=== PATIENT | male | born 1950 | race Caucasian/White ===

== ENCOUNTER → 2017-12-25 10:14 | Outpatient (CLI) | payer MEDICARE | END | disposition home or self-care (01) | LOC: D.CT 10:14 | DX: I25.10 Atherosclerotic heart disease of native coronary artery without angina pectoris (principal) ==

== ENCOUNTER → 2019-12-06 09:27 | Outpatient (CLI) | payer MEDICARE | END | disposition home or self-care (01) | LOC: D.HCCARDIO 11-01 10:00 | PROVIDERS: ATTEND Internal Medicine Cardiovascular Disease | DX: I25.10 Atherosclerotic heart disease of native coronary artery without angina pectoris (principal) ==

== ENCOUNTER → 2019-12-15 11:04 | Outpatient (CLI) | payer MEDICARE | END | disposition home or self-care (01) | LOC: D.US 12-12 13:30 | PROVIDERS: ATTEND Internal Medicine Cardiovascular Disease | DX: I65.23 Occlusion and stenosis of bilateral carotid arteries (principal) ==

== ENCOUNTER 2020-01-05 06:18 | Outpatient (CLI) | payer MEDICARE ==
[~2020-01-05] VITALS: Ht 180.3 cm; Wt 151.0 kg
--- NOTE | ~2020-01-05 | HEMODYNAMI ---
PATIENT:POLO FONTENOT MEDICAL RECORD: [id number] : 52 LOCATION:[facility] ADMISSION DATE: 01/05/20 Generatedon:01/05/20209:18 Patient name: POLO FONTENOT Patient #: [id number] SSN: [id number] : 1950 Date of study: 01/05/2020 Page: Of Hemodynamic Procedure Report Patient Data Patient Demographics Procedure consent was obtained First Name: POLO Gender: Male Last Name: PO : 1950 [facility] Initial: BUZZ Age: 69 year(s) Patient #: [id number] Race: SSN: [id number] Additional ID: [id number] Contact details [address]: [address] [place] [address] State: [place] City: [place] Zip code: [address] Past Medical History Performed procedures and imaging results Date Procedure Procedure Results Comments Stress testing Positive->Intermediate with SPECT MPI risk History of disease Date Diagnosis Comments CAD Allergies Allergen Reaction Date Comments Reported Penicillins 01/05/2020 Admission Admission Data Admission Date: 01/05/2020 Admission Time: 6:18 Arrival Date: 01/05/2020 Arrival Time: 0:00 Insurance Payor: Medicare Weight (lbs.): 333 Weight (kg.): 151.05 Lab Results Lab Result Date: 01/05/2020 Lab Result Time: 0:00 Biochemistry Name Units Result Min Max BUN mg/dl 21 --(----)-* 7 18 Creatinine mg/dl 1.4 --(----)*- 0.6 1.3 eGFR ml/min 53 *-(----)-- 90 120 NONAFRICAN CBC Name Units Result Min Max Hematocrit % 43.5 --(*---)-- 42 54 Hemoglobin g/dl 13.9 --(*---)-- 13.5 17.5 Procedure Procedure Types Cath Procedure Diagnostic Procedure LHC LHC w/Coronaries Sedation Charges Moderate Sedation up to 15 minutes Procedure Description Procedure Date Procedure Date: 01/05/2020 Procedure Start Time: 8:56 Procedure End Time: 9:16 Procedure Staff Name Function Singh Holloway MD Performing Physician Julia Aaron RT Monitor Reva Lindo RT Scrub Valentine Nix RN Nurse Indication CAD Procedure Data Cath Procedure Fluoroscopy Diagnostic fluoroscopy Total fluoroscopy Time: 2.6 time: 2.6 min min Diagnostic fluoroscopy Total fluoroscopy dose: dose: 1408 mGy 1408 mGy Contrast Material Contrast Material Type Amount (ml) Isovue 300 77 Entry Location Entry Primary Successful Side Size Upsize Upsize Entry Closure Martinez ccessful Closure Location (Fr) 1 (Fr) 2 (Fr) Remarks Device Remarks Radial Right 6 Fr Mechanical artery Short Compression Estimated blood loss: 5 ml Diagnostic catheters Device Type Used For End Catheter Placement DIAGNOSTIC Chalino 110cm Procedure 5Fr catheter ([id number]) Procedure Complications No complications Procedure Medications Medication Administration Route Dosage 0.9% NaCl I.V. 100 ml/hr Oxygen etCO2 Nasal cannula 2 l/min Lidocaine 2% added to field 20 Heparin Flush Bag added to field 2 bags (1000units/500ml NS) Radial Cocktail added to field 1 syringe (Verapamil 2mg/Nitro 400mcg/Heparin 1500units) Versed I.V. 2 mg Fentanyl I.V. 50 mcg Fentanyl I.V. 50 mcg Hemodynamics Rest HGB: 13.9 (g/dl) Heart Rate: 73 (bpm) Pressure Samples Time Site Value (mmHg) Purpose Heart Use Rate(bpm) 9:04 LV 161/1,18 Snapshot 79 9:05 AO 151/70(98) Pullback 85 9:05 LV 143/19,9 Pullback 85 Gradients Valve Time Site 1 Site 2 Mean SEP/DFP Peak To Heart Use (mmHg) (sec/min) Peak Rate (mmHg) (bpm) Aortic 9:05 LV AO 0 2 0 85 143/19,9 151/70(98) Calculations Valve P-P Mean Valve Index Valve Source Name Gradient Area Flow (cm2) Aortic 0 0 0 0 Snapshots Pre Cath Intra NCS Post Cath Vital Signs Time Heart Resp SPO2 etCO2 NIBP (mmHg) Rhythm Pain Sedation Rate (ipm) (%) (mmHg) Status Level (bpm) 8:42:42 77 16 96 37.8 Measuring NSR 0 (11) 10(A) , No pain 8:43:08 76 16 96 35.5 143/62(127) NSR 0 (11) 10(A) , No pain 8:47:28 81 13 97 37.8 142/69(117) NSR 0 (11) 10(A) , No pain 8:51:40 76 17 96 42.4 122/56(96) NSR 0 (11) 10(A) , No pain 8:56:00 77 14 96 40.8 138/49(114) NSR 0 (11) 10(A) , No pain 9:00:04 80 13 96 41 132/89(111) NSR 0 (11) 10(A) , No pain 9:04:30 78 17 97 29.5 90/41(75) NSR 0 (11) 10(A) , No pain 9:09:21 82 13 95 40.8 134/63(91) NSR 0 (11) 10(A) , No pain 9:13:37 81 16 96 40 128/67(104) NSR 0 (11) 10(A) , No pain Medications Time Medication Route Dose Verified Delivered Reason Notes Ef fectiveness by by 8:38:30 0.9% NaCl I.V. 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 2 mg Singh Valentine for Jewel Nix sedation RN 8:52:12 Fentanyl I.V. 50 mcg Singh Valentine for Jewel Nix sedation RN 8:58:41 Fentanyl I.V. 50 mcg Singh Valentine for Jewel Nix sedation journeyman mechanic Log Time Note 8:07:07 Informed consent obtained and on chart 8:08:55 Patient allergic to Penicillins 8:09:07 Insurance Payor : Medicare 8:09:14 Diagnostic Cath Status : Elective 8:09:57 Procedure Status Elective Heart Cath (OP). 8:09:59 Time tracking: Regular hours (M-F 7:00 - 5:00) 8:10:03 Plan of Care:Hemodynamics will remain stable., Cardiac rhythm will remain stable., Comfort level will be maintained., Respiratory function will remain adequate., Patient/ family verbilizes understanding of procedure., Procedure tolerated without complication., Recovers from procedure without complications.. 8:10:17 H&P Date Dictated: 01/05/2020 Greater than 30 days; new H&P dictated by physician. Or brief H&P completed.. 8:17:37 Is the patient allergic to Iodine/contrast media? No. 8:17:38 Was the patient premedicated? N/A 8:17:40 Is patient on blood thinner?Yes 8:17:43 ACC The patient was administered the following blood thiners within the last 24 hours: ACCPlavix 8:17:45 Patient diabetic? Yes. 8:17:47 If diabetic: On Metformin? Yes 8:17:49 If on Metformin: Last Dose? 01/05/2020 8:18:00 Patient NPO since Midnight. 8:24:27 Indication : CAD 8:24:59 Patient Weight : 333 lbs 8:25:20 Arrival Date: 01/05/2020 12:00:00 AM 8:28:14 Valentine Nix RN sent for patient. Start room use. 8:31:39 Patient received from Pre/Post Procedure Room to CCL 2 Alert and oriented. Tansferred to table in Supine position. 8:31:41 Warm blankets applied, and mandie hugger turned on for patient comfort. 8:31:41 Correct patient and procedure confirmed by team. 8:31:42 ECG and BP/O2 sat monitors applied to patient. 8:38:30 0.9% NaCl 100 ml/hr I.V. was administered by Valentine Nix RN; used for procedure; Verbal order read back and verified. 8:38:36 Oxygen 2 l/min etCO2 Nasal cannula was administered by Valentine Nix RN; used for procedure; Verbal order read back and verified. 8:38:41 Lidocaine 2% 20ml vial added to field was administered by Singh Holloway MD; for local anesthetic; Verbal order read back and verified. 8:38:45 Heparin Flush Bag (1000units/500ml NS) 2 bags added to field was administered by Singh Holloway MD; used for procedure; Verbal order read back and verified. 8:40:51 Vital chart was started 8:40:55 Baseline sample Acquired. 8:40:59 Rhythm: sinus rhythm 8:41:00 Full Disclosure recording started 8:41:01 Pre-procedure instructions explained to patient. 8:41:01 Pre-op teaching completed and patient verbalized understanding. 8:41:05 Previous problem with sedation/anesthesia? No ? 8:41:06 Snore? Yes 8:41:07 Radial Cocktail (Verapamil 2mg/Nitro 400mcg/Heparin 1500units) 1 syringe added to field was administered by Singh Holloway MD; used for procedure; Verbal order read back and verified. 8:41:07 Sleep apnea? Yes 8:41:08 Deviated septum? No 8:41:09 Opens mouth fully? Yes 8:41:10 Sticks out tongue? Yes 8:41:11 Airway obstruction? No ? 8:41:13 Dentures? No ? 8:41:15 Pre procedure: right dorsailis pedis pulse 1+ Palpable, but thready & weak; easily obliterated 8:41:17 Modified Rich's test Ulnar < 7 seconds 8:41:20 Patient pain scale 0/10 ?. 8:41:24 IV patent on arrival in left hand with 0.9% NaCl at [facility]. 8:41:29 Right Radial & Right Groin area was prepped with chlora-prep and draped in sterile fashion 8:41:30 Alarms reviewed by R. N. 8:41:31 Sharps counted by scrub and verified by R.N. 8:41:33 Use device set Radial Dx or PCI 8:41:34 ACIST Syringe (26019) opened to sterile field. 8:41:36 Bag Decanter (2001S) opened to sterile field. 8:41:36 ACIST Hand Control (11314) opened to sterile field. 8:41:36 ACIST Manifold (58365) opened to sterile field. 8:41:36 Tegaderm 4 x 4 (1626W) opened to sterile field. 8:41:37 Medline Cath Pack ([id number]) opened to sterile field. 8:41:38 amprice Wrist Support ([id number]) opened to sterile field. 8:41:38 NEEDLE Cook 21G 4cm Radial (U84259) opened to sterile field. 8:41:40 EMERALD Guide Wire (502-907) opened to sterile field. 8:41:40 SHEATH 6FR RAIN ([id number]) opened to sterile field. 8:47:41 Lab Result : BUN 21 mg/dl 8:47:41 Lab Result : Creatinine 1.4 mg/dl 8:47:41 Lab Result : eGFR NONAFRICAN 53 ml/min 8:47:41 Lab Result : Hemoglobin 13.9 g/dl 8:47:41 Lab Result : Hematocrit 43.5 % 8:47:44 Lab results completed and on chart. 8:51:49 --------ALL STOP TIME OUT------ 8:51:50 Final Timeout: patient, procedure, and site verified with staff and physician. All members of the team are in agreement. 8:51:52 Right Radial & Right Groin site verified by team. 8:51:55 Fire Safety Assessment: A--An alcohol-based skin anteseptic being used preoperatively., C--Open oxygen or nitrous oxide is being used., D--An ESU, laser, or fiber-optic light is being used. 8:51:57 Physical assessment completed. ASA score P 2 - A patient with mild systemic disease as per Singh Holloway MD. 8:52:02 3a) 45-59 Moderately reduced kidney function. 8:52:03 Versed 2 mg I.V. was administered by Valentine Nix RN; for sedation; Verbal order read back and verified. 8:52:05 Maximum allowable contrast dose (3.7 X eGFR X 0.75)147 ml. 8:52:08 Sedation plan: IV Moderate Sedation Medication:Versed, Fentanyl 8:52:11 Zero performed for pressure channel P1 8:52:12 Fentanyl 50 mcg I.V. was administered by Valentine Nix RN; for sedation; Verbal order read back and verified. 8:55:23 Procedure started. 8:56:03 Local anesthetic to right radial artery with Lidocaine 2% by Singh Holloway MD.INITIAL ACCESS ONLY 8:58:41 Fentanyl 50 mcg I.V. was administered by Valentine Nix RN; for sedation; Verbal order read back and verified. 9:02:58 A 6 Fr Short sheath was inserted into the Right Radial artery 9:03:29 A DIAGNOSTIC Chalino 110cm 5Fr catheter ([id number]) was advanced over the wire and used for Procedure. 9:04:08 LV gram done using WHEAT 9:04:11 Injector settings: Ml/sec: 5, Volume: 15, 9:04:32 LV hemodynamics recorded. 9:04:49 EF : 50 % 9:06:26 LCA angiography performed. 9:10:33 RCA angiography performed. 9:11:09 ACCDominant side:Left 9:12:27 Catheter removed. 9:12:49 Procedure ended.(Physican Out) 9:14:18 TR BAND Large ([id number]) opened to sterile field. 9:14:26 Sheath removed intact; hemostasis achieved with Mechanical Compression to the Right Radial artery. 9:14:32 Fluoroscopy time 02.60 minutes. 9:14:42 Fluoroscopy dose: 1408 mGy 9:14:42 Flurop Dose total: 1408 9:14:50 Dose Area Product 16777 mGy/cm. 9:14:53 Contrast amount:Isovue 300 77ml. 9:14:55 Maximum allowable dose exceeded? No. 9:14:56 Sharps counted by scrub and verified by R.N. 9:15:03 [place] band inflated with 10cc of air. 9:15:07 Post-procedure physical assessment completed. ASA score P 2 - A patient with mild systemic disease as per Singh Holloway MD. 9:15:10 Post procedure rhythm: sinus rhythm 9:15:12 Estimated blood loss: 5 ml 9:15:13 Post procedure instruction explained to patient.Patient verbalizes understanding. 9:15:13 Patient needs reinforcement of post procedure teaching. 9:15:43 Procedure type changed to Cath procedure, Diagnostic procedure, LHC, [facility] w/Coronaries, Sedation Charges, Moderate Sedation up to 15 minutes 9:16:09 Procedure and supply charges have been captured, reviewed, submitted and are correct. 9:16:12 Procedure Complication : No complications 9:16:14 Vital chart was stopped 9:16:16 [facility] Findings: MVD- MD will discuss options w/ pt 9:16:17 Operative report dictated upon procedure completion. 9:16:17 See physician's report for complete and final results. 9:16:19 Report given to Pre/Post Procedure Room. 9:16:22 Patient transfered to Pre/Post Procedure Room with Bed. 9:16:24 Procedure ended. 9:16:24 Full Disclosure recording stopped 9:16:32 End room use (Document Last) 9:17:01 End room use (Document Last) Device Usage Item Name Manufacture Quantity Catalog Hospital Part Current Minima l Lot# / Number Charge Number Stock Stock Serial# Code ACIST Acist 1 64091 455160 492182 [id number] 20 Syringe Medical (98396) Systems Inc Bag Microtek 1 392943 33312 017979 5 Decanter Medical Inc. () ACIST Hand Acist 1 38101 474670 053813 451114 5 Control Medical (46192) Systems Inc ACIST Acist 1 58727 049937 449934 765431 5 Manifold Medical (75609) Systems Inc Tegaderm 4 3M 1 1626W 173066 837046 861643 5 x 4 (1626W) Medline Medline 1 [id number] 516225 12160 229614 5 Cath Pack ([id number]) MBrace Advanced 1 140-0250-00 381945 45532 826423 5 Wrist Vascular Support Dynamics ([id number]) NEEDLE DN2K Medical 1 L50370 876150 921356 256872 5 21G 4cm Radial (C17525) EMERALD Cardinal 1 502-455 407358 304994 038225 5 Guide Wire Health (502-455) SHEATH 6FR Cardinal 1 5342757 735779 3523225 874775 5 [facility] (9819136) DIAGNOSTIC Terumo 1 40-5023 572360 187134 376195 5 Chalino 110cm 5Fr catheter (531620) TR BAND Terumo 1 PRI12-EXT 013102 598921 937403 40 Large ([id number]) Signature [place] Comfort Stage Time Signature Unsigned Intra-Procedure 01/05/2020 Julia Aaron 9:17:01 AM RT(R) Intra-Procedure 01/05/2020 Valentine Nix 9:17:42 AM RN Intra-Procedure 01/05/2020 Singh Holloway MD 9:18:09 AM Signatures Performing Physician : Signature : Singh Holloway MD Date : Time : Monitor : Julia Aaron Signature : RT Date : Time : Nurse : Valentine Nix RN Signature : Date : Time : [facility] [address] [place] [address]
[2020-01-05] MEDS ORDERED: PLAVIX75 MG PO (07:41)
[2020-01-05] MEDS ORDERED: BAYER CHEWABLE81 MG PO (07:46)
[2020-01-05] MEDS ORDERED: PEPCID40 MG PO (07:46)
[2020-01-05] MEDS ORDERED: LASIX20 MG PO (07:47)
[2020-01-05] MEDS ORDERED: FARXIGA10 MG PO (07:47)
[2020-01-05] MEDS ORDERED: LOTENSIN20 MG PO (07:48)
[2020-01-05] MEDS ORDERED: GLUCOPHAGE1000 MG PO (07:49)
[2020-01-05] MEDS ORDERED: FENOFIBRATE160 MG PO (07:49)
[2020-01-05] MEDS ORDERED: NORVASC5 MG PO (07:49)
[2020-01-05] MEDS ORDERED: NEURONTIN 300300 MG PO (07:50)
[2020-01-05] MEDS ORDERED: PRAVACHOL40 MG PO (07:51)
[2020-01-05] MEDS ORDERED: K-DUR20 MEQ PO (07:51)
[2020-01-05] MEDS ORDERED: ACETAMINOPHEN500 M1 PO (07:52)
[2020-01-05] MEDS ORDERED: NOVOLIN 70/30 110 ML SC (07:53)
[2020-01-05 08:14] VITALS: BP 149/49; Ht 180.3 cm; Wt 151.0 kg
[2020-01-05 08:25] LABS: ANION GAP 11.8 mmol/L (8-16); CALCIUM 8.5 mg/dL (8.5-10.1); CARBON DIOXIDE 26.5 mmol/L (21.0-32.0); CHOL - HDL RATIO 5.8 ratio (2.3-4.9); CREATININE - SERUM 1.4 mg/dL (0.6-1.3); LDL-HDL RATIO 2.2 ratio (1.5-3.5); POTASSIUM - SERUM 4.3 mmol/L (3.5-5.1)
[2020-01-05 08:30] LABS: HEMATOCRIT 43.5 % (42.0-54.0); HEMOGLOBIN 13.9 g/dL (13.5-17.5); LYMPHOCYTES 16.7 % (15-50); MCH 29.9 pg (26.0-34.0); MCV 93.5 fL (80.0-100.0); MEAN PLATELET VOLUME 11.7 fL (7.4-10.4); NEUTROPHILS 74.1 % (40-80); PLATELET COUNT 231 10x3/uL (130-400); RBC 4.65 10x6/uL (4.20-6.10); RDW 14.1 % (11.5-14.5); WBC 7.1 10x3/uL (4.8-10.8)
--- NOTE | 2020-01-05 09:26 | NUR ---
PT ARRIVED BY STRETCHER. PLACED ON MONITORS. ASSESSMENT COMPLETED. VSS AT THIS TIME. CALL LIGHT WITHIN REACH.
--- NOTE | 2020-01-05 09:41 | NUR ---
PT SITTING UP IN BED. RIGHT WRIST Z BAND IN PLACE. NO BLEEDING/HEMATOMA NOTED. DENIES NAUSEA/PAIN. CALL LIGHT WITHIN REACH. TOLERATING DRINK AND CRACKERS AT THIS TIME.
--- NOTE | 2020-01-05 10:10 | NUR ---
RIGHT WRIST Z BAND IN PLACE. NO BLEEDING/HEMATOMA NOTED. CALL LIGHT WITHIN REACH. VSS. NO NEEDS AT THIS TIME.
--- NOTE | 2020-01-05 10:15 | NUR ---
DR. HAN AT BEDSIDE TO SPEAK WITH PT.
--- NOTE | 2020-01-05 10:47 | NUR ---
RIGHT WRIST Z BAND IN PLACE. NO BLEEDING/HEMATOMA NOTED. 2cc OF AIR REMOVED FROM Z BAND. TOLERATED WELL. CALL LIGHT WITHIN REACH.
--- NOTE | 2020-01-05 11:00 | NUR ---
2cc OF AIR REMOVED FROM Z BAND. NO BLEEDING/HEMATOMA NOTED.
--- NOTE | 2020-01-05 11:15 | NUR ---
4cc OF AIR REMOVED FROM Z BAND. NO BLEEDING/HEMATOMA NOTED. TOLERATED WELL.
--- NOTE | 2020-01-05 11:30 | NUR ---
Z BAND REMOVED AND DRESSING APPLIED. NO BLEEDING/HEMATOMA NOTED. PIV D/C'D WITH CATH TIP INTACT. TOLERATED WELL. PT INSTRUCTED TO GET UP AND DRESSED AT THIS TIME.
--- NOTE | 2020-01-05 11:40 | NUR ---
PT AMBULATED TO RESTROOM. VOIDED WITHOUT DIFFICULTY. RIGHT WRIST DRESSING C/D/I. NO S/S OF HEMATOMA NOTED.
--- NOTE | 2020-01-05 11:55 | NUR ---
DISCUSSED DISCHARGE INSTRUCTIONS WITH PT. HE VOICED UNDERSTANDING.
--- NOTE | 2020-01-05 12:05 | NUR ---
PT TAKEN DOWN TO VEHICLE BY WHEELCHAIR. NO S/S OF DISTRESS NOTED. ALL BELONGINGS AND PAPERWORK IN HAND. RIGHT WRIST DRESSING C/D/I. NO S/S OF HEMATOMA NOTED.
== END 2020-01-05 12:05 | disposition home or self-care (01) ==
LOC: D.CATH 06:18
PROVIDERS: ATTEND Internal Medicine Cardiovascular Disease
DX: I25.119 Atherosclerotic heart disease of native coronary artery with unspecified angina pectoris (principal); R94.30 Abnormal result of cardiovascular function study, unspecified; I10 Essential (primary) hypertension; E11.9 Type 2 diabetes mellitus without complications; Z79.84 Long term (current) use of oral hypoglycemic drugs; I34.0 Nonrheumatic mitral (valve) insufficiency

== ENCOUNTER 2020-01-17 07:03 | Outpatient (CLI) | payer MEDICARE ==
[~2020-01-17] VITALS: Ht 180.3 cm; Wt 151.9 kg
--- NOTE | ~2020-01-17 | HEMODYNAMI ---
PATIENT:POLO FONTENOT MEDICAL RECORD: [id number] : 52 LOCATION:[facility] ADMISSION DATE: 01/17/20 Generatedon:01/17/202010:44 Patient name: POLO FONTENOT Patient #: [id number] SSN: [id number] : 1950 Date of study: 01/17/2020 Page: Of Hemodynamic Procedure Report Patient Data Patient Demographics Procedure consent was obtained First Name: POLO Gender: Male Last Name: PO : 1950 [facility] Initial: BUZZ Age: 69 year(s) Patient #: [id number] Race: SSN: [id number] Additional ID: [id number] Contact details [address]: [address] [place] [address] State: [place] City: [place] Zip code: [address] Past Medical History History of disease Date Diagnosis Comments CAD Allergies Allergen Reaction Date Comments Reported Penicillins 01/05/2020 Penicillins 01/17/2020 Admission Admission Data Admission Date: 01/17/2020 Admission Time: 7:03 Arrival Date: 01/17/2020 Arrival Time: 0:00 Insurance Payor: Medicare Height (in.): 71 BSA: 2.63 (m2) Height (cm.): 180.34 BMI: 46.72 (kg/m2) Weight (lbs.): 335 Weight (kg.): 151.95 Lab Results Lab Result Date: 01/17/2020 Lab Result Time: 0:00 Biochemistry Name Units Result Min Max BUN mg/dl 22 --(----)-* 7 18 Creatinine mg/dl 1.2 --(---*)-- 0.6 1.3 eGFR ml/min 64.93298 *-(----)-- 90 120 NONAFRICAN CBC Name Units Result Min Max Hematocrit % 44 --(*---)-- 42 54 Hemoglobin g/dl 13.8 --(*---)-- 13.5 17.5 Procedure Procedure Types Cath Procedure Diagnostic Procedure Sedation Charges Moderate Sedation up to 15 minutes PCI Procedure PTCA PTCA Initial Hemochron ACT Test Procedure Description Procedure Date Procedure Date: 01/17/2020 Procedure Start Time: 10:20 Procedure End Time: 10:42 Procedure Staff Name Function Farida Villeda RT Scrub Wilbur Tellez RN Nurse Singh Holloway MD Performing Physician Ana Boudreaux RT Monitor Procedure Data Cath Procedure Fluoroscopy Diagnostic fluoroscopy Total fluoroscopy Time: 3.5 time: 3.5 min min Diagnostic fluoroscopy Total fluoroscopy dose: 696 dose: 696 mGy mGy Contrast Material Contrast Material Type Amount (ml) Isovue 370 83 Entry Location Entry Primary Successful Side Size Upsize Upsize Entry Closure Succes sful Closure Location (Fr) 1 (Fr) 2 (Fr) Remarks Device Remarks Femoral Right 6 Fr Exoseal artery Short Estimated blood loss: 10 ml Procedure Complications No complications Procedure Medications Medication Administration Route Dosage Oxygen etCO2 Nasal cannula 2 l/min Lidocaine 2% added to field 20 Heparin Flush Bag added to field 2 bags (1000units/500ml NS) 0.9% NaCl I.V. 100 ml/hr Versed I.V. 2 mg Fentanyl I.V. 100 mcg Versed I.V. 1 mg Fentanyl I.V. 50 mcg Heparin Bolus I.V. 17761 units Hemodynamics Rest BSA: 2.63 (m2) HGB: 13.8 (g/dl) O2 Consumption: Estimated: 311.53 (ml/min) O2 Co nsumption indexed: Estimated:118.45 (ml/min/m) Heart Rate: 76 (bpm) Snapshots Pre Cath Intra NCS Post Cath Vital Signs Time Heart Resp SPO2 etCO2 NIBP (mmHg) Rhythm Pain Sedation Rate (ipm) (%) (mmHg) Status Level (bpm) 9:57:03 75 19 97 0 155/79(118) NSR 0 (11) 10(A) , No pain 10:01:35 73 20 98 24.6 155/75(106) NSR 0 (11) 10(A) , No pain 10:06:08 76 11 98 26.9 157/73(132) NSR 0 (11) 10(A) , No pain 10:10:44 73 15 97 29.8 143/77(117) NSR 0 (11) 10(A) , No pain 10:15:15 70 18 97 29.8 147/74(127) NSR 0 (11) 10(A) , No pain 10:19:41 75 11 97 31.3 142/76(117) NSR 0 (11) 10(A) , No pain 10:24:07 74 14 93 33.6 152/79(116) NSR 0 (11) 9(A) , No pain 10:28:39 81 15 93 24.6 143/81(94) NSR 0 (11) 9(A) , No pain 10:33:08 80 16 97 7.4 146/77(101) NSR 0 (11) 9(A) , No pain 10:37:40 82 12 95 29.9 146/75(124) NSR 0 (11) 10(A) , No pain 10:42:09 80 4 99 0 147/84(124) NSR 0 (11) 10(A) , No pain Medications Time Medication Route Dose Verified Delivered Reason Note s Effectiveness by by 10:05:39 Oxygen etCO2 2 Singh Buffie used for Nasal l/min Jewel Tellez RN procedure cannula 10:05:46 Lidocaine 2% added 20ml Singh Singh for local to vial Jewel Holloway MD anesthetic field 10:05:52 Heparin Flush added 2 bags Singh Singh used for Bag to Jewel Holloway MD procedure (1000units/500ml field NS) 10:06:00 0.9% NaCl I.V. 100 Singh Buffie Per physician ml/hr Jewel Tellez RN 10:16:50 Versed I.V. 2 mg Singh Buffie for sedation Jewel Tellez RN 10:16:56 Fentanyl I.V. 100 Singh Buffie for sedation mcg Jewel Tellez RN 10:23:02 Versed I.V. 1 mg Singh Buffie for sedation Jewel Tellez RN 10:23:07 Fentanyl I.V. 50 mcg Singh Buffie for sedation Jewel Tellez RN 10:26:51 Heparin Bolus I.V. 10,000 Singh Buffie for veri fied units Jewel Tellez RN anticoagulation with dr holloway Procedure Log Time Note 9:29:09 Diagnostic Cath Status : Elective 9:29:28 Procedure Status Elective Heart Cath (OP). 9:29:32 Valentine Nix RN sent for patient. Start room use. 9:29:33 Time tracking: Regular hours (M-F 7:00 - 5:00) 9:29:38 Plan of Care:Hemodynamics will remain stable., Cardiac rhythm will remain stable., Comfort level will be maintained., Respiratory function will remain adequate., Patient/ family verbilizes understanding of procedure., Procedure tolerated without complication., Recovers from procedure without complications.. 9:34:35 H&P Date Dictated: 01/10/2020 Within 30 days and on chart., H&P Addendum completed by physician on day of procedure. (MUST COMPLETE FOR ALL OUTPATIENTS). 9:34:41 Patient allergic to Penicillins 9:35:59 Lab Result : Hemoglobin 13.8 g/dl 9:35:59 Lab Result : Hematocrit 44 % 9:35:59 Lab Result : eGFR NONAFRICAN 64.38250 ml/min 9:35:59 Lab Result : BUN 22 mg/dl 9:35:59 Lab Result : Creatinine 1.2 mg/dl 9:36:14 Patient Weight : 335 lbs 9:36:23 Patient Height : 71 inches 9:44:51 Patient received from Pre/Post Procedure Room to CCL 1 Alert and oriented. Tansferred to table in Supine position. 9:44:53 Signed procedure consent form obtained from patient. 9:44:54 Warm blankets applied, and mandie hugger turned on for patient comfort. 9:44:55 ECG and BP/O2 sat monitors applied to patient. 9:44:55 Correct patient and procedure confirmed by team. 9:44:57 Pre-op teaching completed and patient verbalized understanding. 9:44:57 Pre-procedure instructions explained to patient. 9:44:59 Family in waiting room. 9:45:01 Patient NPO since Midnight. 9:45:06 Alarms reviewed by R. N. 9:45:07 Sharps counted by scrub and verified by R.N. 9:45:10 Lab results completed and on chart. 9:45:15 Stress Test: no; N/A ? 9:45:27 Arrival Date: 01/17/2020 12:00:00 AM 9:45:34 Insurance Payor : Medicare 9:45:42 Is the patient allergic to Iodine/contrast media? No. 9:45:44 Was the patient premedicated? N/A 9:45:45 Is patient on blood thinner?Yes 9:45:50 ACC The patient was administered the following blood thiners within the last 24 hours: ACCPlavix 9:46:10 Patient diabetic? Yes. 9:46:15 If diabetic: On Metformin? Yes 9:46:19 If on Metformin: Last Dose? 01/15/2020 9:46:22 ----Pre-sedation anethsthesia assessment.---- 9:46:28 Previous problem with sedation/anesthesia? No ? 9:46:29 Snore? Yes 9:46:30 Sleep apnea? Yes 9:46:31 Deviated septum? No 9:46:32 Opens mouth fully? Yes 9:46:33 Sticks out tongue? Yes 9:46:39 Airway obstruction? Yes copd borederline 9:46:42 Dentures? No ? 9:54:40 Patient pain scale 0/10 ?. 9:54:52 IV patent on arrival in left antecubital with 0.9% NaCl at O. 9:55:00 Right groin area was prepped with chlora-prep and draped in sterile fashion 9:55:34 Vital chart was started 9:55:36 Full Disclosure recording started 9:55:37 Baseline sample Acquired. 9:55:41 Rhythm: sinus rhythm 9:57:36 Risk of Mortality: 0.3 9:57:38 Risk of blood transfusion: 0.1 9:57:41 Risk of MARIA ELENA: 0.1 9:57:49 Use device set Femoral Dx 9:57:51 Bag Decanter () opened to sterile field. 9:57:51 ACIST Syringe (32548) opened to sterile field. 9:57:52 Medline Cath Pack ([id number]) opened to sterile field. 9:57:54 ACIST Manifold (39127) opened to sterile field. 9:57:54 ACIST Hand Control (66921) opened to sterile field. 9:57:58 IVONNEALD Guide Wire (502-570) opened to sterile field. 9:58:00 Use device set HOLLOWAY PCI 9:58:04 BMW 300cm [place] 2 J wire ([id number]) opened to sterile field. 9:58:05 INFLATOR Merit BasixCompak (FG9037) opened to sterile field. 9:58:06 TUBING High Pressure Extension Tubing (Jewel) ([id number]) opened to sterile field. 9:58:11 SHEATH 6FR [place] (FDR975) opened to sterile field. 10:05:39 Oxygen 2 l/min etCO2 Nasal cannula was administered by Wilbur Tellez RN; used for procedure; Verbal order read back and verified. 10:05:46 Lidocaine 2% 20ml vial added to field was administered by Singh Holloway MD; for local anesthetic; Verbal order read back and verified. 10:05:52 Heparin Flush Bag (1000units/500ml NS) 2 bags added to field was administered by Singh Holloway MD; used for procedure; Verbal order read back and verified. 10:06:00 0.9% NaCl 100 ml/hr I.V. was administered by Wilbur Tellez RN; Per physician; Verbal order read back and verified. 10:15:12 --------ALL STOP TIME OUT------ 10:15:13 Final Timeout: patient, procedure, and site verified with staff and physician. All members of the team are in agreement. 10:15:14 Right groin site verified by team. 10:15:17 Fire Safety Assessment: A--An alcohol-based skin anteseptic being used preoperatively., C--Open oxygen or nitrous oxide is being used., D--An ESU, laser, or fiber-optic light is being used. 10:15:21 Physical assessment completed. ASA score P 2 - A patient with mild systemic disease as per Singh Holloway MD. 10:15:26 2) 60-89 Mildly reduced kidney function, and other findings (as for stage 1) point to kidney disease. 10:15:29 Maximum allowable contrast dose (3.7 X eGFR X 0.75)178 ml. 10:15:33 Sedation plan: IV Moderate Sedation Medication:Versed, Fentanyl 10:16:50 Versed 2 mg I.V. was administered by iWlbur Tellez RN; for sedation; Verbal order read back and verified. 10:16:56 Fentanyl 100 mcg I.V. was administered by Wilbur Tellez RN; for sedation; Verbal order read back and verified. 10:20:29 Procedure started. 10:20:54 Local anesthetic to right femoral artery with Lidocaine 2% by Singh Holloway MD.INITIAL ACCESS ONLY 10:23:02 Versed 1 mg I.V. was administered by Wilbur Tellez RN; for sedation; Verbal order read back and verified. 10:23:07 Fentanyl 50 mcg I.V. was administered by Wilbur Tellez RN; for sedation; Verbal order read back and verified. 10:25:01 A 6 Fr Short sheath was inserted into the Right Femoral artery 10:25:11 Proceeding to intervention. 10:25:40 6 Fr EBU 3.75 guide catheter was inserted over the wire 10:26:51 Heparin Bolus 10,000 units I.V. was administered by Wilbur Tellez RN; for anticoagulation; verified with dr holloway Verbal order read back and verified. 10:27:44 Pre PCI Site: [place] [facility] has 80% stenosis. 10:28:39 BMW 300 wire advanced. 10:30:31 Wire advanced across lesion. 10:32:24 Place stent Inflation Number: 1 A MISAEL OTW 3.0 x 22 stent ([id number]) was prepped and advanced across the 1st Ob [place] 80. The stent was deployed at 12 LAYLA for 0:00 (min:sec) . 10:34:42 Stent catheter was removed intact over wire. 10:34:43 Guide catheter removed. 10:34:43 Wire removed. 10:34:50 EXOSEAL 6Fr (EX600) opened to sterile field. 10:36:01 Sheath removed intact; hemostasis achieved with Exoseal to the Right Femoral artery. 10:36:25 Procedure ended.(Physican Out) 10:37:20 Fluoroscopy time 03.50 minutes. 10:37:24 Fluoroscopy dose: 696 mGy 10:37:24 Flurop Dose total: 696 10:37:31 Dose Area Product 58981 mGy/cm. 10:37:39 Contrast amount:Isovue 370 83ml. 10:37:42 Maximum allowable dose exceeded? No. 10:37:43 Sharps counted by scrub and verified by R.N. 10:37:47 Post-op/insertion site Right Femoral artery dressed using a 4 x 4 and Tegaderm. 10:37:52 Post right femoral artery:stable, soft, clean and dry 10:37:53 Post Procedure Pulses reassessed and unchanged 10:37:57 Post procedure: right dorsailis pedis pulse 2+ Normal; easily identifiable; not easily obliterated. 10:38:01 Post-procedure physical assessment completed. ASA score P 2 - A patient with mild systemic disease as per Singh Holloway MD. 10:38:05 Post procedure rhythm: unchanged. 10:38:08 Estimated blood loss: 10 ml 10:38:10 Post procedure instruction explained to patient.Patient verbalizes understanding. 10:38:11 Patient needs reinforcement of post procedure teaching. 10:38:35 Procedure type changed to Cath procedure, Diagnostic procedure, Sedation Charges, Moderate Sedation up to 15 minutes, PCI procedure, PTCA, PTCA Initial, Hemochron ACT Test 10:38:57 Procedure and supply charges have been captured, reviewed, submitted and are correct. 10:39:02 Procedure Complication : No complications 10:39:07 [facility] Findings: MVD- PCI performed (see procedure note) 10:39:11 Operative report dictated upon procedure completion. 10:39:12 See physician's report for complete and final results. 10:40:21 ACC-PCI Only Patient was given prescriptions, or instructed by Singh Holloway MD to start/continue the following medications upon discharge: Plavix 10:40:51 ACT drawn and resulted at 338 seconds. (normal therapeutic range 180-240 seconds). 10:41:48 Vital chart was stopped 10:41:52 Report given to Pre/Post Procedure Room. 10:41:55 Patient transfered to Pre/Post Procedure Room with Stretcher. 10:42:00 Full Disclosure recording stopped 10:42:00 Procedure ended. 10:42:07 End room use (Document Last) 10:42:18 End room use (Document Last) 10:42:34 End room use (Document Last) Intervention Summary Intervention Notes Time ActionType Lesion and Equipment Action# Pressure Duration Attributes Used 10:32:24 Place stent 1st Ob [place] MISAEL OTW 3.0 1 12 00:00 x 22 stent ([id number]) Device Usage Item Name Manufacture Quantity Catalog Hospital Part Current Mini mal Lot# / Number Charge Number Stock Stock Serial# Code ACIST Syringe Acist 1 52041 665328 534782 [id number] 20 (32566) Medical Systems Inc Bag Decanter Microtek 1 331319 24358 126919 5 () Medical Inc. Medline Cath Medline 1 [id number] 644134 24292 294268 5 Pack ([id number]) ACIST Hand Acist 1 57568 756700 829096 580847 5 Control Medical (02577) Systems Inc ACIST Acist 1 02359 526643 070558 351068 5 Manifold Medical (47935) Systems Inc EMERALD Guide Cardinal 1 502-455 924148 554629 748324 5 Wire Health (502-455) BMW 300cm Elizabeth 1 [id number] 152781 383669 996372 5 [place] 2 J Vascular wire ([id number]) INFLATOR Merit 1 [id number] 536250 773642 673949 15 Merit Medical BasixCompak (OR2521) TUBING High Merit 1 [id number] 761814 79973 644258 10 Pressure Medical Extension Tubing (Jewel) (AP2530N) SHEATH 6FR Terumo 1 CQY843 990331 112806 284229 40 [place] (UYW298) MISAEL OTW 3.0 Medtronic 1 [id number] 480911 0199185 038209 5 [id number] x 22 stent ([id number]) EXOSEAL 6Fr Cardinal 1 EX600 485516 810725 024086 10 (EX600) Health Signature Audit [place] Stage Time Signature Unsigned Intra-Procedure 01/17/2020 Ana Boudreaux 10:42:18 AM RT(R) Intra-Procedure 01/17/2020 Wilbur Tellez RN 10:42:34 AM Intra-Procedure 01/17/2020 Singh Holloway MD 10:43:58 AM [id number] [place] [address]
[~2020-01-17 07:03] MED LIST: ACETAMINOPHEN500 M1 PO; BAYER CHEWABLE81 MG PO; FARXIGA10 MG PO; FENOFIBRATE160 MG PO; GLUCOPHAGE1000 MG PO; K-DUR20 MEQ PO; LASIX20 MG PO; LOTENSIN20 MG PO; NEURONTIN 300300 MG PO; NORVASC5 MG PO; NOVOLIN 70/30 110 ML SC; PEPCID40 MG PO; PLAVIX75 MG PO; PRAVACHOL40 MG PO
[2020-01-17 07:53] VITALS: BP 167/71; Ht 180.3 cm; Wt 151.9 kg
[2020-01-17 08:20] LABS: BASOPHILS 0.4 % (0-2); EOSINOPHILS 1.7 % (0-7); HEMOGLOBIN 13.8 g/dL (13.5-17.5); IMMATURE GRANULOCYTES 0.4 % (0-5); LYMPHOCYTES 18.6 % (15-50); MCH 29.5 pg (26.0-34.0); MCHC 31.4 g/dL (31.0-37.0); MEAN PLATELET VOLUME 11.9 fL (7.4-10.4); MONOCYTES 12.7 % (2-11); NEUTROPHILS 66.2 % (40-80); PLATELET COUNT 206 10x3/uL (130-400); RBC 4.68 10x6/uL (4.20-6.10); RDW 14.4 % (11.5-14.5); WBC 4.7 10x3/uL (4.8-10.8)
[2020-01-17 08:29] LABS: ANION GAP 12.1 mmol/L (8-16); CALCIUM 8.8 mg/dL (8.5-10.1); CARBON DIOXIDE 26.2 mmol/L (21.0-32.0); CREATININE - SERUM 1.2 mg/dL (0.6-1.3); POTASSIUM - SERUM 4.3 mmol/L (3.5-5.1)
--- NOTE | 2020-01-17 10:55 | NUR ---
PT ARRIVED BY STRETCHER. PLACED ON MONITORS. ASSESSMENT COMPLETED. VSS AT THIS TIME. CALL LIGHT WITHIN REACH. NO FAMILY AT BEDSIDE.
--- NOTE | 2020-01-17 11:10 | NUR ---
RIGHT GROIN DRESSING C/D/I. NO S/S OF HEMATOMA NOTED. PT C/O RIGHT SHOULDER PAIN. REPORTS HE OFTEN HAS SHOULDER PAIN AND GETS "FROZEN SHOULDER". REPORTS PAIN 6/10 AT THIS TIME. ORDERS FOR ALEVE PRN OBTAINED. PT TOLERATINS SIPS OF WATER. DR. HAN AT BEDSIDE SPEAKING WITH PT ABOUT HIS PROCEDURE.
--- NOTE | 2020-01-17 11:50 | NUR ---
RIGHT GROIN DRESSING C/D/I. NO S/S OF HEMATOMA NOTED. PT REPORTS RIGHT SHOULDER PAIN HAS IMPROVED AND RATES IT A 3/10 AT THIS TIME.
--- NOTE | 2020-01-17 12:37 | NUR ---
PT RESTING WATCHING TELEVISION. VSS. RIGHT GROIN DRESSING C/D/I. NO S/S OF HEMATOMA NOTED. CALL LIGHT WITHIN REACH. TOLERATING SIPS OF WATER. PILLOWS PROPPED FOR COMFORT.
--- NOTE | 2020-01-17 13:15 | NUR ---
RIGHT GROIN DRESSING C/D/I. NO S/S OF HEMATOMA NOTED. CALL LIGHT WITHIN REACH. VSS AT THIS TIME. PT STATING "I CAN'T LAY ON MY BACK ANY LONGER". I ENCOURAGED HIM THAT HE ONLY HAD APPROX 15 MINUTES LEFT. HELPED REPOSITION WITH PILLOWS.
--- NOTE | 2020-01-17 13:35 | NUR ---
RIGHT GROIN DRESSING C/D/I. NO S/S OF HEMATOMA NOTED. CALL LIGHT WITHIN REACH. HEAD OF BED INC TO 30 DEGREES. PT TOLERATED WELL. DENIES NAUSEA AT THIS TIME. SET UP WITH SANDWICH TRAY AND DRINK.
--- NOTE | 2020-01-17 14:10 | NUR ---
RIGHT GROIN DRESSING C/D/I. NO S/S OF HEMATOMA NOTED. CALL LIGHT WITHIN REACH. VSS. PT INSTRUCTED TO GET UP AND DRESSED AT THIS TIME. PIV D/C'D WITH CATH TIP INTACT.
--- NOTE | 2020-01-17 14:20 | NUR ---
PT AMBULATED TO RESTROOM. VOIDED WITHOUT DIFFICULTY. STEADY GAIT NOTED. DISCUSSED DISCHARGE INSTRUCTIONS WITH PT. HE VOICED UNDERSTANDING.
--- NOTE | 2020-01-17 14:30 | NUR ---
RIGHT GROIN DRESSING C/D/I. NO S/S OF HEMATOMA NOTED. PT TAKEN DOWN TO VEHICLE BY WHEELCHAIR. NO S/S OF DISTRESS NOTED. ALL BELONGINGS AND PAPERWORK IN HAND.
== END 2020-01-17 14:30 | disposition home or self-care (01) ==
LOC: D.CATH 07:03
PROVIDERS: ATTEND Internal Medicine Cardiovascular Disease
DX: I25.119 Atherosclerotic heart disease of native coronary artery with unspecified angina pectoris (principal); R94.39 Abnormal result of other cardiovascular function study; E11.9 Type 2 diabetes mellitus without complications; Z79.4 Long term (current) use of insulin

== ENCOUNTER → 2020-05-07 07:54 | Outpatient (CLI) | payer MEDICARE ==
[2020-01-17 07:53] VITALS: BMI 46.7
== END | disposition home or self-care (01) ==
LOC: D.LAB 07:54
PROVIDERS: ATTEND Internal Medicine Pulmonary Disease
DX: Z11.59 Encounter for screening for other viral diseases (principal)

== ENCOUNTER → 2020-05-11 08:18 | Outpatient (CLI) | payer MEDICARE ==
[2020-01-17 07:53] VITALS: BMI 46.7
== END | disposition home or self-care (01) ==
LOC: D.RT 08:18
PROVIDERS: ATTEND Internal Medicine Pulmonary Disease
DX: J44.9 Chronic obstructive pulmonary disease, unspecified (principal); Z11.59 Encounter for screening for other viral diseases